=== PATIENT | female | born 2005 | race Two or more races ===

== ENCOUNTER 2025-03-21 19:50 | Emergency (ER) | payer BC ==
[~2025-03-21] VITALS: Ht 152.4 cm; Wt 77.1 kg
[2025-03-21 20:13] VITALS: TEMP 98.8
[2025-03-21] MEDS ORDERED: NITR100C6 PO (20:36)
[2025-03-21] MEDS ORDERED: DOXY-326 PO (20:36)
[2025-03-21] MEDS ORDERED: PHEN-705 PO (20:36)
[2025-03-21] MEDS ORDERED: CEFTRIAXONE 500 MG VIAL ONE (20:39)
[2025-03-21] MEDS ORDERED: LIDOCAINE /MPF 1% VIAL 5 ML VIAL ONE (20:40)
[2025-03-21] MEDS: CEFTRIAXONE 500 MG VIAL IM ONE (20:50)
[2025-03-21 20:51] VITALS: BP 119/72; O2SAT 98
[2025-03-21 21:05] LABS: APPEARANCE,URINE CLEAR (CLEAR); BLOOD, URINE TRACE-INTA Ery/uL (NEGATIVE); LEUKOCYTE ESTERASE ,URINE 1+ (NEGATIVE); NITRITE, URINE NEGATIVE (NEGATIVE); UGLUCOSE NEGATIVE (NEGATIVE)
[2025-03-21 21:08] LABS: ADD URINE CULTURE YES; SQUAMOUS EPITHELIAL CELL,UR Few /HPF (None Seen)
[2025-03-22 15:23] LABS: HIV-1/2 ANTIBODY NON REACTIVE (NONREACTIVE)
[2025-03-23 04:10] LABS: RAPID PLASMA REAGIN QUAL. Non Reactive (Non Reactive)
== END 2025-03-21 20:51 | disposition home or self-care (01) ==
LOC: ER 19:57
DX: R30.0 Dysuria (principal); Z20.2 Contact with and (suspected) exposure to infections with a predominantly sexual mode of transmission; Z91.048 Other nonmedicinal substance allergy status
CPT/HCPCS: 99283; 96372; 81001; 87806; 86803; 87340; J0696; J3490; 36415; 86317; 86592; 86593; 87086-TC